=== PATIENT | female | born 1930 | race Native Hawaiian/Other Pacific Islander ===

== ENCOUNTER 2017-04-11 08:00 | Outpatient (CLI) | payer OTHER ==
[~2017-04-11] VITALS: Ht 154.9 cm; Wt 72.6 kg
== END 2017-04-11 10:00 | disposition home or self-care (01) ==
LOC: NM 08:00
DX: R07.89 Other chest pain (principal)
CPT/HCPCS: A9500; J2785

== ENCOUNTER 2017-07-27 08:27 | Outpatient (CLI) | payer OTHER | END 2017-07-27 19:19 | disposition home or self-care (01) | LOC: RESP 08:27 | DX: R06.02 Shortness of breath (principal) ==

== ENCOUNTER 2019-05-08 08:57 | Outpatient (CLI) | payer OTHER | END 2019-05-08 19:38 | disposition home or self-care (01) | LOC: US 08:57 | DX: I73.89 Other specified peripheral vascular diseases (principal) ==